=== PATIENT | female | born 1970 | race Caucasian/White ===

== ENCOUNTER 2017-01-16 20:44 | Emergency (ER) | payer OTHER ==
[~2017-01-16 20:44] MED LIST: HYDROCHLOROTH12.5 MG PO; NORVASC10 MG PO; PRILOSEC20 MG PO; PRINIVIL20 MG PO
== END 2017-01-16 21:33 | disposition short-term general hospital (02) ==
LOC: ER 20:44
PROC: 0HQGXZZ Repair Left Hand Skin, External Approach (ICD-10-PCS; principal; 2017-01-16)
DX: S61.112A Laceration without foreign body of left thumb with damage to nail, initial encounter (principal); Z79.899 Other long term (current) drug therapy; Z88.5 Allergy status to narcotic agent; Z88.6 Allergy status to analgesic agent; Z88.8 Allergy status to other drugs, medicaments and biological substances; W26.0XXA Contact with knife, initial encounter; Y92.69 Other specified industrial and construction area as the place of occurrence of the external cause; Y99.0 Civilian activity done for income or pay